=== PATIENT | male | born 1960 | race Caucasian/White ===

== ENCOUNTER 2017-01-24 16:26 | Emergency (ER) | payer BC, OTHER ==
[~2017-01-24] VITALS: Ht 182.9 cm; Wt 61.2 kg
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
[2017-01-24] MEDS ORDERED: LIDOCAINE 1% INJ 20 ML (XYLOCAINE) VIAL ONE (17:56)
[2017-01-24 18:30] VITALS: BP 128/90
== END 2017-01-24 18:30 | disposition home or self-care (01) ==
LOC: ER 16:27
DX: S56.822A Laceration of other muscles, fascia and tendons at forearm level, left arm, initial encounter (principal); V49.40XA Driver injured in collision with unspecified motor vehicles in traffic accident, initial encounter
CPT/HCPCS: 12001; 70450; 72125; 73030